=== PATIENT | male | born 1975 | race Caucasian/White ===

== ENCOUNTER 2023-09-15 17:03 | Emergency (ER) | payer SELFPAY ==
[2023-09-15 17:10] VITALS: RESP 18; TEMP 98.5; BMI 27.4
[2023-09-15] MEDS ORDERED: DIPHTH,PERTUSS(ACELL),TET 0.5 ML DISP.SYRIN IM ONE (18:39)
[2023-09-15] MEDS: DIPHTH,PERTUSS(ACELL),TET 0.5 ML DISP.SYRIN IM ONE (18:42)
[2023-09-15] MEDS ORDERED: ONDANSETRON *ODT* 4 MG TABLET ONE (18:59)
[2023-09-15] MEDS ORDERED: ACETAMINOPHEN 325 MG TABLET (FP) ONE (18:59)
[2023-09-15] MEDS: ACETAMINOPHEN 325 MG TABLET (FP) PO ONE (19:03)
[2023-09-15] MEDS: ONDANSETRON *ODT* 4 MG TABLET SL ONE (19:03)
[2023-09-15 20:15] VITALS: BP 121/77; PULSE 105
== END 2023-09-15 20:16 | disposition home or self-care (01) ==
LOC: JER 17:03
PROC: 3E0234Z Introduction of Serum, Toxoid and Vaccine into Muscle, Percutaneous Approach (ICD-10-PCS; principal; 2023-09-15)
DX: S00.03XA Contusion of scalp, initial encounter (principal); S00.531A Contusion of lip, initial encounter; M54.2 Cervicalgia; R68.84 Jaw pain; R51.9 Headache, unspecified; Y04.8XXA Assault by other bodily force, initial encounter
CPT/HCPCS: 70450-TC; 70486-TC; 72125-TC; 90715; 99284-25; Q0162

== ENCOUNTER 2023-09-17 13:08 | Emergency (ER) | payer SELFPAY ==
[2023-09-17 13:20] VITALS: RESP 18; BMI 27.4
[2023-09-17] MEDS ORDERED: MECLIZINE HCL 25 MG TABLET (FP) ONE (14:42)
[2023-09-17] MEDS ORDERED: ACETAMINOPHEN 325 MG TABLET (FP) ONE (14:42)
[2023-09-17] MEDS: MECLIZINE HCL 25 MG TABLET (FP) PO ONE (14:46)
[2023-09-17] MEDS: ACETAMINOPHEN 500 MG TABLET (FP) PO ONE (14:46)
[2023-09-17 18:18] VITALS: BP 115/72; PULSE 85; TEMP 98.1
== END 2023-09-17 17:00 | disposition home or self-care (01) ==
LOC: JER 13:08
DX: R42 Dizziness and giddiness (principal); S06.0X0A Concussion without loss of consciousness, initial encounter; R11.0 Nausea; Y04.8XXA Assault by other bodily force, initial encounter
CPT/HCPCS: 99283-25